=== PATIENT | male | born 1975 | race Caucasian/White ===

== ENCOUNTER 2017-11-17 17:32 | Emergency (ER) | payer SELFPAY ==
[2017-11-17 17:40] VITALS: BP 115/87
[2017-11-17] MEDS ORDERED: TOBRAM/DEXAMETH OPHTH DROPS 2.5 ML EACHEYE STA (17:54)
--- NOTE | 2017-11-17 17:57 | ED Physician Documentation ---
PD HPI OPHTHO - Stated complaint Stated Complaint: EYE ITHCHING/REDNESS/PAIN - Chief complaint Chief Complaint: Heent - History obtained from History obtained from: Patient - History of Present Illness Timing - onset: Other (He was exposed to pinkeye by a friend's child, but a week ago his eyes started getting red and inflamed with drainage. He was seen about 4 days ago at a walk-in clinic and prescribed Polytrim eyedrops and he has had no improvement. His vision is fine and he does not wear contacts. He has a mild runny nose.) Review of Systems Constitutional: denies: Fever, Chills Eyes: reports: Discharge, Irritation. denies: Loss of vision, Decreased vision , Photophobia Ears: denies: Loss of hearing, Ear pain PD PAST MEDICAL HISTORY - Present Medications Home Medications: Ambulatory Orders Medication Instructions Recorded Confirmed Polymyxin B Sulf/Trimethoprim 10 ml OP 11/17/17 [Polymyxin B-Tmp Eye Drops] Tobramycin/Dexamethasone [Tobradex 1 drops OP QID #1 drops.susp 11/17/17 Eye Drops] - Allergies Allergies/Adverse Reactions: Allergies Allergy/AdvReac Type Severity Reaction Status Date / Time No Known Drug Allergies Allergy Verified 11/17/17 17:40 PD ED PE NORMAL - Vitals Vital signs reviewed: Yes - General General: Alert and oriented X 3, No acute distress - HEENT HEENT: Other (Both conjunctivae have cheimotic with swelling and bloodshot, but the cornea are normal) - Neck Neck: Supple, no meningeal sign, No bony TTP - Neuro Neuro: Alert and oriented X 3, Normal speech Results - Vitals Vitals: Vital Signs - 24 hr 11/17/17 17:37 Temperature 36.4 C L Heart Rate 75 Respiratory 16 Rate Blood Pressure 115/87 H O2 Saturation 99 Oxygen O2 Source Room air PD MEDICAL DECISION MAKING - Sepsis Event Vital Signs: Vital Signs - 24 hr 11/17/17 17:37 Temperature 36.4 C L Heart Rate 75 Respiratory 16 Rate Blood Pressure 115/87 H O2 Saturation 99 Oxygen O2 Source Room air Departure - Departure Disposition: 01 Home, Self Care Clinical Impression: Conjunctivitis Qualifiers: Conjunctivitis type: acute Acute conjunctivitis type: unspecified Laterality: bilateral Qualified Code(s): H10.33 - Unspecified acute conjunctivitis, bilateral Condition: Good Record reviewed to determine appropriate education?: Yes Instructions: ED Conjunctivitis Nonspecific Follow-Up: Gene Mcmahon MD [Provider Admit Priv/Credential] - Within 3 Days Prescriptions: Tobramycin/Dexamethasone [Tobradex Eye Drops] 1 drops OP QID #1 drops.susp
== END 2017-11-17 18:13 | disposition home or self-care (01) ==
LOC: ED 17:32
DX: H10.33 Unspecified acute conjunctivitis, bilateral (principal)
CPT/HCPCS: 99281; 99282; A9270